=== PATIENT | female | born 1960 | race Caucasian/White ===

== ENCOUNTER 2019-07-21 00:18 | Emergency (ER) | payer BC, MEDICAID, OTHER ==
[~2019-07-21] VITALS: Ht 160 cm; Wt 62.5 kg
[2019-07-21 00:23] VITALS: BP 105/65
[2019-07-21] MEDS ORDERED: DIPH,PERTUSS(ACELL),TET VAC/PF 0.5 ML IM-VACC ONE ×2 (01:51→02:00)
[2019-07-21] MEDS ORDERED: AMOXICILLIN/CLAV 875-125MG TABLET ONE (01:51)
--- NOTE | 2019-07-21 01:59 | NUR ---
DC EDUCATION PROVIDED, PT DEMONSTRATE UNDERSTANDING. PT AMBULATED STEADILY TO DC WITH RN AND FAMILY. FAMILY TO TRANSPORT PT HOME.
[2019-07-21] MEDS ORDERED: AMOXICILLIN/CLAV 875-125MG TABLET PO ONE (02:00)
== END 2019-07-21 02:01 | disposition home or self-care (01) ==
LOC: ED 01:55
DX: S01.21XA Laceration without foreign body of nose, initial encounter (principal); F17.200 Nicotine dependence, unspecified, uncomplicated; W54.0XXA Bitten by dog, initial encounter; Y93.89 Activity, other specified; Y92.009 Unspecified place in unspecified non-institutional (private) residence as the place of occurrence of the external cause; Y99.8 Other external cause status
CPT/HCPCS: 12051; 90471; 90715